=== PATIENT | male | born 1960 | race Caucasian/White ===

== ENCOUNTER 2018-04-01 02:50 | Emergency (ER) | payer OTHER ==
[~2018-04-01] VITALS: Ht 172.7 cm; Wt 106.8 kg
[~2018-04-01 02:50] MED LIST: MAXZIDE-2537.5 MG/TA PO; NAPROSYN500 MG PO; PRAZOSIN HCL5 MG OR; RISPERIDONE2 MG PO; VYTORIN1 TA1 PO; ZOLOFT50 MG PO
[2018-04-01 03:24] LABS: HEMATOCRIT 45.9 % (39.0-50.0); HEMOGLOBIN 15.9 g/dl (14.0-18.0); IMMATURE GRANULOCYTES 0.4 % (0.0-5.0); MEAN CELL VOLUME 88.4 fL CALC (80.0-100.0); MEAN CORPUSCULAR HGB 30.6 pG CALC (26.0-32.0); MEAN CORPUSCULAR HGB CONC 34.6 g/L CALC (32.0-36.0); NEUT# 10.32 thou/uL (1.82-7.42); RED BLOOD COUNT 5.19 mill/uL (4.70-6.10); RED CELL DISTRI WIDTH 12.2 % (11.5-15.5)
[2018-04-01 03:38] LABS: ALBUMIN 4.2 g/dL (3.2-5.0); ALKALINE PHOSPHATASE 69 u/l (38-126); AMYLASE 67 u/l (30-110); ANION GAP 14 (6-22 (CALC)); BILIRUBIN, TOTAL 0.4 mg/dL (0.0-1.4); BUN 16 mg/dL (9-20); BUN/CREATININE RATIO 16 (12-20 (CALC)); CARBON DIOXIDE 29 mmol/l (22-30); CHLORIDE 103 mmol/l (95-108); GFR > 60 ML/MIN (>=60 (CALC)); GFR FOR AFR.AMER. > 60 ML/MIN (>=60 (CALC)); LIPASE 63 u/l (23-300); POTASSIUM 3.9 mmol/l (3.5-5.1); SGOT/AST 27 u/l (17-59); SODIUM 143 mmol/l (137-146); TOTAL PROTEIN 7.4 g/dL (6.3-8.2)
[2018-04-01 03:40] LABS: ETHYL ALCOHOL < 10 mg/dl (0-30)
[2018-04-01 04:46] LABS: URINE BILIRUBIN - DIPSTICK NEGATIVE (NEGATIVE); URINE BLOOD DIPSTICK LARGE (NEGATIVE); URINE COLOR YELLOW; URINE GLUCOSE - DIPSTICK NEGATIVE (NEGATIVE); URINE KETONE TRACE mg/dL (NEGATIVE); URINE LEUK ESTERASE NEGATIVE (NEGATIVE); URINE NITRITE - DIPSTICK NEGATIVE (Negative); URINE PROTEIN - DIPSTICK 30 mg/dL (NEG-TRACE)
[2018-04-01 04:53] LABS: URINE CLARITY TURBID
[2018-04-01 04:54] LABS: BARBITURATES NEGATIVE (NEGATIVE); COCAINE NEGATIVE (NEGATIVE); METHADONE NEGATIVE (NEGATIVE); OXCYCODONE NEGATIVE (NEGATIVE); TETRAHYDROCANNABIONOL NEGATIVE (NEGATIVE); TRICYLIC ANTIDEPRESSANTS NEGATIVE (NEGATIVE); URINE MUCUS MANY hpf (NONE-FEW); URINE SQUAMOUS EPITHELIAL CELL FEW EPI/hpf (0-FEW); URINE WBC 0-2 WBC/hpf (0-5)
[2018-04-01] MEDS ORDERED: TAMSULOSIN0.4 MG PO (05:21)
[2018-04-01] MEDS ORDERED: LORTAB 5/3255 MG PO (05:21)
[2018-04-01 06:50] VITALS: BP 121/59
== END 2018-04-01 06:50 | disposition home or self-care (01) | DRG 694 ==
LOC: ED 02:50
PROVIDERS: Family Medicine
DX: N13.2 Hydronephrosis with renal and ureteral calculous obstruction (principal); I10 Essential (primary) hypertension; M19.90 Unspecified osteoarthritis, unspecified site